=== PATIENT | male | born 2000 | race American Indian/Alaskan Native ===

== ENCOUNTER 2022-05-23 16:43 | Emergency (ER) | payer SELFPAY ==
[2022-05-23] MEDS ORDERED: LIDOCAINE-MPF (1%) 10 MG/1 ML VIAL 5 ML INFILTRATI ONE (21:18)
[2022-05-23] MEDS ORDERED: LIDOCAINE (2%) 20 MG/1 ML VIAL 20 ML MDV INFILTRATI STA (21:19)
[2022-05-23] MEDS ORDERED: oxyCODONE /ACETAMINOPHEN 5-325MG TAB PO ONE (21:19)
--- NOTE | 2022-05-23 23:47 | Emergency Department Report ---
Abscess Boil HPI - HPI Chief Complaint: Skin/Abscess/Foreign Body Stated Complaint: BUMP UNDER ARM Time Seen by Provider: 05/23/22 21:17 Duration: 3 Days Location: Other Severity: Mild History: Yes Purulent Drainage, Yes Foreign Body HPI: Pain and swelling tenderness to the right axillary area suspicious of an abscess presents emerged department seeking further evaluation treatment options. Home Medications: Previous Rx's Medication Instructions Recorded Last Taken Type Chlorhexidine Gluconate [Hibiclens] 10 ml TP BID #240 liquid 05/23/22 Unknown Rx Ketorolac [Toradol] 10 mg PO Q6H PRN #15 tablet 05/23/22 Unknown Rx Sulfamethoxazole/Trimethoprim 2 each PO BID #40 tablet 05/23/22 Unknown Rx [Bactrim DS TAB] Allergies/Adverse Reactions: Allergies Allergy/AdvReac Type Severity Reaction Status Date / Time No Known Allergies Allergy Verified 05/23/22 21:30 ED Review of Systems ROS: Stated complaint: BUMP UNDER ARM Other details as noted in HPI Comment: All other systems reviewed and negative ED Past Medical Hx - Past Medical History Previous Medical History?: No - Surgical History Past Surgical History?: No - Medications Home Medications: Home Medications Medication Instructions Recorded Confirmed Last Taken Type Chlorhexidine Gluconate [Hibiclens] 10 ml TP BID #240 liquid 05/23/22 Unknown Rx Ketorolac [Toradol] 10 mg PO Q6H PRN #15 tablet 05/23/22 Unknown Rx Sulfamethoxazole/Trimethoprim 2 each PO BID #40 tablet 05/23/22 Unknown Rx [Bactrim DS TAB] ED Abscess Boil Physical Exam - Exam General: Vital signs noted. No distress. Alert and acting appropriately. Front/Back of Body, Lg (Color): 1 - Abscess to this region Size: 4 cm Exam: Yes Tenderness, Yes Surrounding Cellulites/Erythema, Yes Normal Neurologic Exam, Yes Normal Circulation, No Fluctuance, No Lymphangitis, No Crepitation, No Heart Murmur I & D Note - I & D Note I & D Note: PRE-OP DIAGNOSIS: *Abscess. POST-OP DIAGNOSIS: Same. PROCEDURE: incision and drainage of abscess. Performing Physician/advanced practice provider: Tracey Melgar_. . PROCEDURE: A timeout protocol was performed prior to initiating the procedure. The area was prepared and draped in the usual, sterile manner. The site was anesthetized with 2% lidocaine without epinephrine. A linear incision was along the local skin lines was made and the purulent material expressed. The abcess was explored thoroughly and sequestered pockets were opened. Wound was irrigated with normal saline and bleeding was minimal. Packing: None. . Followup: The patient tolerated the procedure well without complications. Standard post-procedure care is explained and return precautions are given. ED Course Vital Signs 05/23/22 20:16 Temperature 99.0 F Pulse Rate 59 L Respiratory 16 Rate Blood Pressure 152/92 [Right] O2 Sat by Pulse 99 Oximetry Critical care attestation.: If time is entered above; I have spent that time in minutes in the direct care of this critically ill patient, excluding procedure time. ED Disposition Clinical Impression: Abscess of right axilla Disposition: HOME / SELF CARE / HOMELESS Is pt being admited?: No Does the pt Need Aspirin: No Condition: Stable Instructions: Skin Abscess, Skin Abscess, [id number], Incision and Drainage, Care After Additional Instructions: You have had an abscess drained in the Emergency Department and you may have had packing placed in the wound to help the abscess continue to drain at home. Please do not remove the packing if it was placed if no packing placed shower as usual. You may shower with the packing in place - let the soapy water clean your wound, do not scrub at it. Keep your wound covered to prevent transmission of infection to other people. Follow up with your primary care physician or listed provider in2- 3 days for a wound check and/or packing removal. Return to the Emergency Department immediately if you develop any of the following symptoms: Fevers, Increased redness or swelling around where your abscess was, Increased pain, or Generalized weakness or vomiting Prescriptions: Sulfamethoxazole/Trimethoprim [Bactrim DS TAB] 2 each PO BID #40 tablet Chlorhexidine Gluconate [Hibiclens] 10 ml TP BID #240 liquid Ketorolac [Toradol] 10 mg PO Q6H PRN #15 tablet PRN Reason: Pain Referrals: [facility] [Provider Group] - 3-5 Days
[2022-05-24 06:12] VITALS: BP 152/95
== END 2022-05-23 23:20 | disposition home or self-care (01) ==
LOC: ED 16:43
DX: L02.411 Cutaneous abscess of right axilla (principal); Z79.899 Other long term (current) drug therapy
CPT/HCPCS: 10060; 96372; 99282; J0696; J3490